=== PATIENT | male | born 1950 | race Caucasian/White ===

== ENCOUNTER → 2018-02-06 | Outpatient (CLI) | payer MEDICARE ==
[~2018-02-06] MED LIST: ASPI-496 PO; CHOL5000 PO; DULA0.75 SC; ENAL5TAB PO; FENO134C PO; INSU100C5 SQ-INSULIN; INSU100V8 SQ; LEVO137T3 PO; METF1000 PO; METF500T17 PO; OMEG1CAP6 PO; SIMV40TA3 PO; VITA400T6 PO
[2018-02-06 09:36] LABS: MICROSCOPIC NOT IND
[2018-02-06 09:41] LABS: BASOPHILS # (AUTO) 0.04 x10^3/uL (0-0.1); BASOPHILS % (AUTO) 1 % (0-1); EOSINOPHILS # (AUTO) 0.05 x10^3/uL (0-0.4); EOSINOPHILS % (AUTO) 1 % (1-7); LYMPHOCYTES # (AUTO) 1.99 x10^3/uL (1-3.4); LYMPHOCYTES % (AUTO) 27 % (22-44); MD NO; MEAN CORPUSCULAR HEMOGLOBIN 30.5 pg (27.5-34.5); MEAN CORPUSCULAR HGB CONC 33.7 g/dL (33.2-36.2); MEAN CORPUSCULAR VOLUME 90.5 fL (81-97); MEAN PLATELET VOLUME 7.9 fL (7.4-10.4); MONOCYTES % (AUTO) 8 % (2-9); NEUTROPHILS # (AUTO) 4.84 x10^3/uL (1.8-6.8); NEUTROPHILS % (AUTO) 64 % (42-75); PLATELET COUNT 249 x10^3/uL (130-400); RED BLOOD COUNT 5.02 x10^6/uL (4.38-5.82); RED CELL DISTRIBUTION WIDTH 13.9 % (9.4-14.8)
[2018-02-06 09:49] LABS: ALBUMIN 3.8 g/dL (3.4-5.0); ANION GAP 4 mmol/L (5-15); CALCIUM 9.1 mg/dL (8.5-10.1); CHLORIDE 106 mmol/L (98-107)
[2018-02-06 09:52] LABS: ALANINE AMINOTRANSFERASE 31 U/L (12-78); ALKALINE PHOSPHATASE 31 U/L (45-117); BILIRUBIN,TOTAL 0.4 mg/dL (0.2-1.0); CREATININE 1.28 mg/dL (0.7-1.3); TOTAL PROTEIN 7.2 g/dL (6.4-8.2)
== END | disposition home or self-care (01) ==
LOC: STAR 08:18
PROVIDERS: ATTEND Urology
DX: Z01.818 Encounter for other preprocedural examination (principal); D49.512 Neoplasm of unspecified behavior of left kidney
CPT/HCPCS: 36415; 80053; 81003; 85025; 87086; 93005

== ENCOUNTER → 2018-02-19 | Outpatient (CLI) | payer MEDICARE ==
[~2018-02-19] MED LIST changes: +REGADENOSON 0.4 MG/5 ML SYRINGE ONE
== END | disposition home or self-care (01) ==
LOC: CVU 07:24
PROVIDERS: ATTEND Internal Medicine Cardiovascular Disease
DX: Z01.810 Encounter for preprocedural cardiovascular examination (principal); I51.7 Cardiomegaly; I48.1 Persistent atrial fibrillation; E11.9 Type 2 diabetes mellitus without complications; E78.5 Hyperlipidemia, unspecified
CPT/HCPCS: 78452; 93017; A9502; C8929; J2785; Q9957

== ENCOUNTER 2018-03-11 08:46 | Day surgery (SDC) | payer MEDICARE ==
[~2018-03-11] VITALS: Ht 172.7 cm; Wt 109.0 kg
[~2018-03-11 08:46] MED LIST changes: -REGADENOSON 0.4 MG/5 ML SYRINGE ONE
[2018-03-11] MEDS ORDERED: LACTATED RINGERS 1,000 ML IV SCH (09:16)
[2018-03-11] MEDS ORDERED: PLEASE ENTER HEIGHT AND WEIGHT MC SCH (09:30)
[2018-03-11] MEDS ORDERED: LIDOCAINE-MPF 1%, 2ML INFIL ONE (09:30)
[2018-03-11] MEDS ORDERED: CEFAZOLIN PMX 1GM/50ML 50 ML IV ONE (09:30)
[2018-03-11 09:31] VITALS: BP 118/78
[2018-03-11] MEDS ORDERED: FENTANYL PF 100 MCG/2ML ONE ×2 (12:20→15:27)
[2018-03-11] MEDS ORDERED: MIDAZOLAM 1 MG/ML, 2ML ONE (12:20)
[2018-03-11] MEDS ORDERED: LIDOCAINE-MPF 1%, 5ML ONE (12:41)
[2018-03-11] MEDS ORDERED: ONDANSETRON 2MG/ML, 2ML ONE (13:01)
[2018-03-11] MEDS ORDERED: DEXAMETHASONE 4 MG/ML, 5ML ONE (13:01)
[2018-03-11] MEDS ORDERED: SUCCINYLCHOLINE 20 MG/ML, 10ML ONE (13:01)
[2018-03-11] MEDS ORDERED: PROPOFOL 10 MG/ML, 20ML ONE (13:01)
[2018-03-11] MEDS ORDERED: OXYcodone 5 MG/5 ML ORAL.SOL UDC ONE (15:27)
[2018-03-11] MEDS ORDERED: HYDROmorphone 1 MG/ML, 1ML IV PRN (15:30)
[2018-03-11] MEDS ORDERED: ACETAMINOPHEN 325 MG TABLET PO PRN (15:30)
[2018-03-11] MEDS ORDERED: hydrALAzine 20 MG/ML, 1ML IV PRN (15:30)
[2018-03-11] MEDS ORDERED: ONDANSETRON 2MG/ML, 2ML IV PRN (15:30)
[2018-03-11] MEDS ORDERED: FENTANYL PF 100 MCG/2ML IV PRN (15:30)
[2018-03-11] MEDS ORDERED: OXYcodone 5 MG/5 ML ORAL.SOL UDC PO PRN (15:30)
[2018-03-11] MEDS ORDERED: LABETALOL 5MG/ML, 20ML IV PRN (15:30)
== END 2018-03-11 19:05 | disposition home or self-care (01) ==
LOC: OUT 08:46
PROVIDERS: ATTEND Urology
DX: N28.89 Other specified disorders of kidney and ureter (principal); E11.9 Type 2 diabetes mellitus without complications; E78.5 Hyperlipidemia, unspecified; E78.2 Mixed hyperlipidemia; I48.91 Unspecified atrial fibrillation; Z79.82 Long term (current) use of aspirin; Z98.890 Other specified postprocedural states
CPT/HCPCS: 50593; 77013; 82962; J0330; J0690; J1100; J2250; J2405; J2704; J3010; J7120

== ENCOUNTER → 2018-05-26 | Outpatient (CLI) | payer MEDICARE ==
[~2018-05-26] MED LIST changes: +GADOBUTROL 10 MMOL/10 ML VIAL ONE
== END | disposition home or self-care (01) ==
LOC: CFH 07:33
PROVIDERS: ATTEND Urology
DX: N28.89 Other specified disorders of kidney and ureter (principal); K80.20 Calculus of gallbladder without cholecystitis without obstruction
CPT/HCPCS: 74183; 82565; A9585

== ENCOUNTER 2019-08-21 07:31 | Outpatient (CLI) | payer MEDICARE ==
[~2019-08-21 07:31] MED LIST changes: +APIX5TAB PO; -GADOBUTROL 10 MMOL/10 ML VIAL ONE; +SIMV40TA20 PO; -SIMV40TA3 PO
== END 2019-08-21 23:59 | disposition home or self-care (01) ==
LOC: ROC 07:31
PROVIDERS: ATTEND Radiology Radiation Oncology
DX: C41.2 Malignant neoplasm of vertebral column (principal); M48.02 Spinal stenosis, cervical region; E11.9 Type 2 diabetes mellitus without complications; Z85.528 Personal history of other malignant neoplasm of kidney
CPT/HCPCS: 99214; G0463

== ENCOUNTER → 2019-09-02 | Outpatient (CLI) | payer MEDICARE ==
[~2019-09-02] MED LIST changes: +GADOTERATE 10 MMOL/20 ML SYR ONE
== END | disposition home or self-care (01) ==
LOC: CFH 14:24
PROVIDERS: ATTEND Radiology Radiation Oncology
DX: C41.2 Malignant neoplasm of vertebral column (principal); M48.02 Spinal stenosis, cervical region; M47.812 Spondylosis without myelopathy or radiculopathy, cervical region; E11.9 Type 2 diabetes mellitus without complications
CPT/HCPCS: 72156; A9575

== ENCOUNTER → 2019-11-30 | Outpatient (CLI) | payer MEDICARE ==
[~2019-11-30] MED LIST changes: -GADOTERATE 10 MMOL/20 ML SYR ONE
== END | disposition home or self-care (01) ==
LOC: ROC 07:12
PROVIDERS: ATTEND Radiology Radiation Oncology
DX: C64.2 Malignant neoplasm of left kidney, except renal pelvis (principal); C41.2 Malignant neoplasm of vertebral column
CPT/HCPCS: 99213; G0463

== ENCOUNTER → 2020-03-30 | Outpatient (CLI) | payer MEDICARE ==
[~2020-03-30] MED LIST changes: -ENAL5TAB PO; +ENAL5TAB10 PO; +GADOTERATE 10 MMOL/20 ML SYR ONE
== END | disposition home or self-care (01) ==
LOC: CFH 07:24
PROVIDERS: ATTEND Radiology Radiation Oncology
DX: C41.2 Malignant neoplasm of vertebral column (principal); M51.34 Other intervertebral disc degeneration, thoracic region; M25.78 Osteophyte, vertebrae; M48.02 Spinal stenosis, cervical region; M43.8X2 Other specified deforming dorsopathies, cervical region
CPT/HCPCS: 71250; 72156; A9575

== ENCOUNTER → 2020-05-11 | Outpatient (CLI) | payer MEDICARE ==
[~2020-05-11] MED LIST changes: -GADOTERATE 10 MMOL/20 ML SYR ONE
== END | disposition home or self-care (01) ==
LOC: ROC 07:06
PROVIDERS: ATTEND Radiology Radiation Oncology
DX: C41.2 Malignant neoplasm of vertebral column (principal); M48.02 Spinal stenosis, cervical region
CPT/HCPCS: 99213; G0463

== ENCOUNTER → 2020-06-22 | Outpatient (CLI) | payer MEDICARE ==
[~2020-06-22] MED LIST changes: +GADOTERATE 10 MMOL/20 ML SYR ONE
== END | disposition home or self-care (01) ==
LOC: CFH 07:56
PROVIDERS: ATTEND Radiology Radiation Oncology
DX: C41.2 Malignant neoplasm of vertebral column (principal); M25.78 Osteophyte, vertebrae; M48.02 Spinal stenosis, cervical region; M43.8X2 Other specified deforming dorsopathies, cervical region
CPT/HCPCS: 72156; A9575